=== PATIENT | male | born 1960 | race Caucasian/White ===

== ENCOUNTER 2017-05-16 14:30 | Emergency (ER) | payer MEDICAID ==
[2017-05-16] MEDS ORDERED: TETANUS/DIPHTHERIA/PERTUSSIS 0.5 ML SYRINGE IM ONE ×2 (14:52→15:12)
[2017-05-16] MEDS ORDERED: AMOX/CLAV 875 MG/125 MG TABLET PO STA ×2 (14:52→15:23)
[2017-05-16] MEDS ORDERED: AMOX/CLAV 875 MG/125 MG TABLET PO ONE ×2 (15:12→15:37)
--- NOTE | 2017-05-16 15:21 | ED Physician Documentation ---
History of Present Illness - Stated complaint Stated Complaint: DOG BITE - Chief complaint Chief Complaint: General - Additonal information Additional information: hx from pt healthy 57 male who needs an updated tdap mauled by a friends healthy immunized pet pit bul numerous botes to R FA and hand and to both inner upper thighs and scrotum and an abrasion scratch to the abd Review of Systems Skin: reports: Bite / sting Immunocompromised: denies: Immunocompromised PD PAST MEDICAL HISTORY - Past Medical History Past Medical History: No - Past Surgical History Past Surgical History: No - Present Medications Home Medications: Ambulatory Orders Medication Instructions Recorded Confirmed Amox/Clav 875/125 [Augmentin] 1 each PO Q12H #14 tablet 05/16/17 - Allergies Allergies/Adverse Reactions: Allergies Allergy/AdvReac Type Severity Reaction Status Date / Time No Known Drug Allergies Allergy Verified 05/16/17 14:41 - Social History Does the pt smoke?: No Smoking Status: Never smoker Does the pt drink ETOH?: Yes Does the pt have substance abuse?: No - Immunizations Immunizations are current?: Yes - POLST Patient has POLST: No PD ED PE NORMAL - Vitals Vital signs reviewed: Yes (HR understandably up - will recheck) - Cardiac Cardiac: RRR - Respiratory Respiratory: No respiratory distress, Clear bilaterally - Free text exam Free text exam: Bites as follow R FA 9 deep puncture wounds and short lacs with focal hematoma swelling, no FB seen or palpated R palm 3 puncture wound one deep, no FB seen or palpated R dorsal radial hand 2 punctures for all RUE bites all wrist hand and finger extnsor and tendons are functioning without apparent injury and MSV to all fingers, oozing blood but not pulsatile L upper inner thigh 3 punctures brusing and small hematoma R upper inner thigh one puncture wound right ant upper scrotum a V shaped 1.5 cm lac, testicle not involved all vis to base and no FB seen or palpated and MSV intact Results - Vitals Vitals: Vital Signs - 24 hr 05/16/17 14:39 Temperature 36.8 C Heart Rate 133 H Respiratory 18 Rate Blood Pressure 163/96 H O2 Saturation 98 Oxygen O2 Source Room air PD MEDICAL DECISION MAKING - ED course ED course: all wounds cleansed and dressed tdap given augmentin given offered and pt declined pain meds holiday weekend so pt to return to see me tomorrow for a recheck Departure - Departure Disposition: 01 Home, Self Care Clinical Impression: Dog bite Qualifiers: Encounter type: initial encounter Qualified Code(s): W54.0XXA - Bitten by dog, initial encounter Condition: Good Instructions: ED Bite Animal General Prescriptions: Amox/Clav 875/125 [Augmentin] 1 each PO Q12H #14 tablet Comments: Leave the dressings on until you come back to the ER tomorrow for a wound check We gave you a second antibiotic dose which you should take later tonight, then go to the pharmacy when it is open tomorrow and get the next six days worth. Come back to the ER tomorrow for a wound check - these bites are at high risk for infection even though we washed everything thoroughly, left the wounds open , and prescribed prophylactic antibiotics
[2017-05-16 15:38] VITALS: BP 140/98
== END 2017-05-16 15:41 | disposition home or self-care (01) ==
LOC: ED 14:30
DX: S51.831A Puncture wound without foreign body of right forearm, initial encounter (principal); S61.431A Puncture wound without foreign body of right hand, initial encounter; S71.132A Puncture wound without foreign body, left thigh, initial encounter; S71.131A Puncture wound without foreign body, right thigh, initial encounter; S31.31XA Laceration without foreign body of scrotum and testes, initial encounter; W54.0XXA Bitten by dog, initial encounter; Z23 Encounter for immunization
CPT/HCPCS: 90471; 90715; 99283; A9270